=== PATIENT | female | born 2000 | race Two or more races ===

== ENCOUNTER 2021-09-03 22:35 | Emergency (ER) | payer OTHER ==
[~2021-09-03] VITALS: Ht 170.2 cm; Wt 59.0 kg
--- NOTE | 2021-09-03 23:18 | NUR ---
BIBS C/O LEFT SIDED ABDOMINAL AND SHOULDER PAIN X2DAYS. -N/V +DIARRHEA. PATIENT ALERT AND ORIENTED X4 AMBULATORY WITH NON LABORED BREATHING. IN BED 16 SEEN BY MD AT TRIAGE.
[2021-09-03] MEDS ORDERED: MAG HYDROX/AL HYDROX/SIMETH 30 ML UDC ONE (23:58)
[2021-09-03] MEDS ORDERED: LIDOCAINE VISCOUS 2% UD 15 ML UDC ONE (23:58)
[2021-09-04] MEDS ORDERED: MAG HYDROX/AL HYDROX/SIMETH 30 ML UDC PO ONE
[2021-09-04] MEDS ORDERED: LIDOCAINE VISCOUS 2% UD 15 ML UDC MM ONE
[2021-09-04] MEDS ORDERED: LIDOCAINE VISCOUS 2% UD 15 ML UDC ONE (00:02)
[2021-09-04] MEDS ORDERED: MAG HYDROX/AL HYDROX/SIMETH 30 ML UDC ONE (00:02)
--- NOTE | 2021-09-04 00:03 | NUR ---
ER BUDDER @ BEDSIDE
[2021-09-04 00:13] LABS: BASOPHILS % (AUTO) 0.5 % (0.0-2.0); EOSINOPHILS % (AUTO) 1.9 % (0.0-6.0); HEMATOCRIT 40 % (33-45); HEMOGLOBIN 13.3 g/dL (11.5-14.8); LYMPHOCYTES # (AUTO) 1.5 K/uL (0.8-4.8); LYMPHOCYTES % (AUTO) 38.7 % (20.0-44.0); MEAN CORPUSCULAR HGB CONC 33 g/dl (31.0-36.0); MEAN CORPUSCULAR VOLUME 90 fL (82-100); MONOCYTES # (AUTO) 0.3 K/uL (0.1-1.30); MONOCYTES % (AUTO) 7.4 % (2.0-12.0); NEUTROPHILS % (AUTO) 51.5 % (43.0-81.0); PLATELET COUNT (AUTO) 229 K/uL (150-450); RED BLOOD CELL COUNT(AUTO) 4.46 MIL/uL (4.0-5.2); WHITE BLOOD COUNT (AUTO) 3.9 K/uL (4.3-11.0)
[2021-09-04 00:28] LABS: CALCIUM, SERUM 9.2 mg/dL (8.5-10.1); CREATININE 0.5 mg/dL (0.6-1.3)
[2021-09-04 00:36] LABS: ALBUMIN 4.1 g/dL (3.4-5.0); BILIRUBIN,TOTAL 0.2 mg/dL (0.2-1.0); TOTAL PROTEIN, SERUM 7.9 g/dL (6.4-8.2)
[2021-09-04] MEDS ORDERED: DICY10CA13 PO (01:15)
[2021-09-04 01:28] VITALS: BP 132/70
--- NOTE | 2021-09-04 01:28 | NUR ---
Patient discharged to home in stable condition. Written and verbal after care instructions given. Patient verbalizes understanding of instruction.
== END 2021-09-04 01:29 | disposition home or self-care (01) ==
LOC: ER 22:37
DX: R10.12 Left upper quadrant pain (principal)
CPT/HCPCS: 36415; 80048-TC; 80076-TC; 83690-TC; 85025-TC